=== PATIENT | female | born 1965 | race Caucasian/White ===

== ENCOUNTER → 2016-12-06 | Outpatient (CLI) | payer MEDICAID ==
--- NOTE | 2016-12-06 10:53 | DX ---
Air and Barium Double Contrast Esophagram at 0 927 hours History: K 21.0, esophagitis. Technique: Air and barium double-contrast views of the esophagus obtained in the upright oblique, AP , and lateral projections, as well as the prone oblique projections. Fluoroscopy time: 1.9 minutes. Dose: 82.60 mGy Findings: Esophagus demonstrates normal swallowing function without evidence of strictures, ulceratio ns, obstruction, or hiatal hernia. No fluoroscopic evidence of gastroesophageal reflux. Vallecula and pyriform sinuses appear symmetric. No aspiration. No Zenker's diverticulum Impression: Normal air-contrast esophagram.
== END ==
LOC: FIMAGING 08:59
PROVIDERS: ATTEND Physician Assistant
DX: Z03.89 Encounter for observation for other suspected diseases and conditions ruled out (principal)

== ENCOUNTER → 2016-12-30 | Outpatient (CLI) | payer MEDICAID | LOC: FIMAGING 15:57 | PROVIDERS: ATTEND Physician Assistant | DX: Z12.31 Encounter for screening mammogram for malignant neoplasm of breast (principal) | CPT/HCPCS: G0202 ==

== ENCOUNTER 2017-02-01 21:09 | Emergency (ER) | payer MEDICAID ==
--- NOTE | 2017-02-01 21:39 | CPEKG ---
Heart Rate: 95 RR Interval: 632 P-R Interval: 140 QRSD Interval: 92 QT Interval: 360 QTC Interval: 453 P [place]: 57 QRS [place]: -42 T Wave [place]: 40 EKG Severity - OTHERWISE NORMAL ECG - EKG Impression: SINUS RHYTHM EKG Impression: LEFT AXIS DEVIATION Electronically Signed By: Keenan Weber 02-Feb-2017 03:04:38
[2017-02-01] MEDS ORDERED: LIDOCAINE 2% VISCOUS 15 ML UDCUP PO ONE (21:58)
[2017-02-01] MEDS ORDERED: HYOSCYAMINE SULFATE 0.125 MG TAB PO ONE (21:58)
[2017-02-01] MEDS ORDERED: MAG HYDROX/AL HYDROX/SIMETH 30 ML UDCUP PO ONE (21:58)
--- NOTE | 2017-02-01 22:03 | EDPHY ---
H & P Stated Complaint: abd pain Time Seen by Provider: 02/01/17 21:53 HPI/ROS: Chief complaint: Abdominal pain HPI: 52-year-old female with past medical history of diabetes, GERD and hypertension presenting with 4 hours of epigastric pain. Is described as sharp pain. It is a 10/10. Began 4 hours ago after she ate dinner. She was sitting watching television when it started. It does not radiate. Some nausea no vomiting. No diarrhea. No black bowel movements. Does not feel like any prior symptoms that she has had in the past. No chest pain or shortness of breath. There are no aggravating or alleviating factors. She has not taken any medications for this. ROS: 10 point Review of Systems is negative except as noted in the HPI. Past medical history: Diabetes, GERD, hypertension Medications: Lisinopril, metformin, insulin, NovoLog and Levemir, Reglan, atorvastatin, iron, omeprazole Allergies: Hydromorphone and morphine Social history: She does not smoke, no alcohol no drug use, family history is noncontributory Physical exam: Gen: Awake, Alert, uncomfortable appearing, morbidly obese HEENT: Nose: no rhinorrhea Eyes: PERRLA, EOMI Mouth: Moist mucosa Neck: Supple, no JVD Chest: nontender, lungs clear to auscultation Heart: S1, S2 normal, no murmur Abd: Obese, Soft, epigastric tenderness to palpation reproducing presenting complaint, no right upper quadrant tenderness. No Franz sign. No lower quadrant tenderness, no guarding Back: no CVA tenderness, no midline tenderness Ext: no edema, non-tender Skin: no rash Neuro: CN II-XII intact, Sensation grossly intact, Strength 5/5 in bilateral upper and lower extremities - Personal History Tetanus Vaccine Date: 2009 - Medical/Surgical History Hx Asthma: No Hx Chronic Respiratory Disease: No Hx Diabetes: Yes Hx Cardiac Disease: Yes Hx Renal Disease: No Other PMH: pmh- DM, HTN, sleep apnea (uses CPAP hs)obesity, GERD, iron deficiency anemia, has had pneumonia twice previously. - Social History Smoking Status: Never smoked Constitutional: Initial Vital Signs Temperature (C) 37.1 C 02/01/17 21:12 Heart Rate 99 02/01/17 21:12 Respiratory Rate 22 H 02/01/17 21:12 Blood Pressure 146/86 H 02/01/17 21:12 O2 Sat (%) 94 02/01/17 21:12 O2 (L/minute) 2 Allergies/Adverse Reactions: hydromorphone HCl [From Dilaudid] Allergy (Intermediate, Verified 02/01/17 21:11 ) Other-Enter Comments morphine Allergy (Verified 02/01/17 21:11) Home Medications: Medication Instructions Recorded Lisinopril [Zestril 20 mg (*)] 20 mg PO DAILY 11/23/13 Multivitamins [Multivitamin (*)] 1 each PO DAILY 11/23/13 [place]-3 Fatty Acids [Fish Oil 1000 1,000 mg PO DAILY 12/11/14 mg (*)] Atorvastatin Calcium [Lipitor 10 10 mg PO DAILY 12/12/14 mg (*)] Insulin Detemir [Levemir] 16 unit SQ DAILY #0 09/28/16 Naproxen Sodium [Aleve 220 MG (*)] 220 mg PO DAILY PRN #0 09/28/16 Omeprazole [Prilosec 20 mg] 20 mg PO DAILY #0 09/28/16 Azithromycin [Zithromax] 250 mg PO DAILY #4 tab 10/04/16 Insulin Detemir [Levemir] 28 unit SQ HS 10/04/16 metFORMIN HCL [Glucophage 500 mg 1,000 mg PO BIDMEAL 10/04/16 (*)] Medical Decision Making ED Course/Re-evaluation: 0015 patient is improved after fentanyl and Protonix. She has a mild anemia but this is known as she is on iron for this. Mild leukocytosis but no left shift. Her blood chemistry is normal with the exception of an elevated blood glucose. Liver functions normal troponin is normal. There is no evidence of acute gallbladder disease. There is no evidence of acute coronary syndrome. ECG is normal. Symptoms are consistent with gastritis. Symptoms also consistent with possible peptic ulcer disease. Will discharge with referral for Gastroenterology for upper endoscopy for further evaluation. She will return for worsening. She will continue taking her antacid medications as prescribed. - Data Points Laboratory Results: Laboratory Results 02/01/17 21:25 02/01/17 21:25 02/01/17 02/01/17 02/01/17 21:25 21:25 21:25 WBC RBC Hgb Hct MCV MCH MCHC RDW Plt Count MPV Neut % (Auto) Lymph % (Auto) [place] % (Auto) Eos % (Auto) Baso % (Auto) Nucleat RBC Rel Count Absolute Neuts (auto) Absolute Lymphs (auto) Absolute Monos (auto) Absolute Eos (auto) Absolute Basos (auto) Absolute Nucleated RBC Immature Gran % Immature Gran # Sodium 137 mEq/L mEq/L (134-144) Potassium 4.3 mEq/L mEq/L (3.5-5.2) Chloride 101 mEq/L mEq/L (97-110) Carbon Dioxide 26 mEq/l mEq/l (22-31) Anion Gap 10 mEq/L mEq/L (8-16) BUN 11 mg/dL mg/dL (7-23) Creatinine 0.6 mg/dL mg/dL (0.6-1.0) Estimated GFR > 60 Glucose 262 mg/dL H mg/dL (70-100) Calcium 9.1 mg/dL mg/dL (8.5-10.4) Total Bilirubin 0.5 mg/dL mg/dL (0.1-1.4) Conjugated Bilirubin 0.4 mg/dL mg/dL (0.0-0.5) Unconjugated Bilirubin 0.1 mg/dL mg/dL (0.0-1.1) AST 22 IU/L IU/L (14-46) ALT 35 IU/L IU/L (9-52) Alkaline Phosphatase 113 IU/L IU/L (38-126) Troponin I < 0.012 ng/mL ng/mL (0-0.034) Total Protein 6.8 g/dL g/dL (6.3-8.2) Albumin 4.1 g/dL g/dL (3.5-5.0) Lipase 98.0 IU/L IU/L (23-300) Beta HCG, Qual NEGATIVE 02/01/17 21:25 WBC 11.34 10^3/uL H 10^3/uL (3.80-9.50) RBC 5.13 10^6/uL 10^6/uL (4.18-5.33) Hgb 11.1 g/dL L g/dL (12.6-16.3) Hct 36.1 % L % (38.0-47.0) MCV 70.4 fL L fL (81.5-99.8) MCH 21.6 pg L pg (27.9-34.1) MCHC 30.7 g/dL L g/dL (32.4-36.7) RDW 18.5 % H % (11.5-15.2) Plt Count 450 10^3/uL H 10^3/uL (150-400) MPV 9.1 fL fL (8.7-11.7) Neut % (Auto) 70.3 % % (39.3-74.2) Lymph % (Auto) 18.2 % % (15.0-45.0) [place] % (Auto) 7.0 % % (4.5-13.0) Eos % (Auto) 3.6 % % (0.6-7.6) Baso % (Auto) 0.5 % % (0.3-1.7) Nucleat RBC Rel Count 0.0 % % (0.0-0.2) Absolute Neuts (auto) 7.98 10^3/uL H 10^3/uL (1.70-6.50) Absolute Lymphs (auto) 2.06 10^3/uL 10^3/uL (1.00-3.00) Absolute Monos (auto) 0.79 10^3/uL 10^3/uL (0.30-0.80) Absolute Eos (auto) 0.41 10^3/uL H 10^3/uL (0.03-0.40) Absolute Basos (auto) 0.06 10^3/uL 10^3/uL (0.02-0.10) Absolute Nucleated RBC 0.00 10^3/uL 10^3/uL (0-0.01) Immature Gran % 0.4 % % (0.0-1.1) Immature Gran # 0.04 10^3/uL 10^3/uL (0.00-0.10) Sodium Potassium Chloride Carbon Dioxide Anion Gap BUN Creatinine Estimated GFR Glucose Calcium Total Bilirubin Conjugated Bilirubin Unconjugated Bilirubin AST ALT Alkaline Phosphatase Troponin I Total Protein Albumin Lipase Beta HCG, Qual Medications Given: Discontinued Medications Al Hydroxide/Mg Hydroxide (Maalox Susp) 30 ml PO ONCE ONE Stop: 02/01/17 21:59 Last Admin: 02/01/17 22:15 Dose: 30 ml Fentanyl (Sublimaze) 50 mcg IVP EDNOW ONE Stop: 02/01/17 22:47 Last Admin: 02/01/17 22:47 Dose: 50 mcg Hyoscyamine Sulfate (Levsin, Hyomax-Sl) 0.25 mg PO ONCE ONE Stop: 02/01/17 21:59 Last Admin: 02/01/17 22:14 Dose: 0.25 mg Pantoprazole Sodium 40 mg/ (Sodium Chloride) 100 mls @ 200 mls/hr IV EDNOW ONE Stop: 02/01/17 23:45 Last Admin: 02/01/17 23:33 Dose: 100 mls Lidocaine (Lidocaine 2% Viscous) 15 ml PO ONCE ONE Stop: 02/01/17 21:59 Last Admin: 02/01/17 22:15 Dose: 15 ml Departure - Departure Disposition: Home, Routine, Self-Care Clinical Impression: Gastritis Condition: Good Instructions: Diet for Stomach Ulcers and Gastritis (ED), Gastritis (ED) Additional Instructions: Continue taking your reflux medications. Follow up with primary care doctor in 2-3 days for re-evaluation. I have given a referral to Gastroenterology for and endoscopy to evaluate for possible ulcer. Return emergency depart for increasing pain, nausea, vomiting, dark black stools , or any other concerns. Referrals: Racheal Melendrez [Primary Care Provider] - As per Instructions Print Language: Slovak
[2017-02-01 22:13] LABS: % IMMATURE GRANULYOCYTES 0.4 % (0.0-1.1); ABSOLUTE IMMATURE GRANULOCYTES 0.04 10^3/uL (0.00-0.10); ADD DIFF? NO; ADD MORPH? NO; ADD SCAN? NO; ATYPICAL LYMPHOCYTE FLAG 0 (0-99); FRAGMENT RBC FLAG 20 (0-99); HEMATOCRIT 36.1 % (38.0-47.0); HEMOGLOBIN 11.1 g/dL (12.6-16.3); LEFT SHIFT FLG 0 (0-99); LIPEMIA HEMOLYSIS FLAG 80 (0-99); MEAN CELL HEMOGLOBIN 21.6 pg (27.9-34.1); MEAN CELL HEMOGLOBIN CONCENTR. 30.7 g/dL (32.4-36.7); MEAN CELL VOLUME 70.4 fL (81.5-99.8); MEAN PLATELET VOLUME 9.1 fL (8.7-11.7); PLATELET CLUMPS FLAG 0 (0-99); PLATELET COUNT 450 10^3/uL (150-400); RED BLOOD CELL COUNT 5.13 10^6/uL (4.18-5.33); RED CELL DISTRIBUTION WIDTH 18.5 % (11.5-15.2)
[2017-02-01 22:21] LABS: ALANINE AMINOTRANSFERASE 35 IU/L (9-52); ALBUMIN 4.1 g/dL (3.5-5.0); ALKALINE PHOSPHATASE 113 IU/L (38-126); ANION GAP 10 mEq/L (8-16); ASPARTATE AMINOTRANSFERASE 22 IU/L (14-46); BILIRUBIN,TOTAL 0.5 mg/dL (0.1-1.4); BILIRUBIN-CONJUGATED 0.4 mg/dL (0.0-0.5); BILIRUBIN-UNCONJUGATED 0.1 mg/dL (0.0-1.1); CALCIUM 9.1 mg/dL (8.5-10.4); CARBON DIOXIDE 26 mEq/l (22-31); CHLORIDE 101 mEq/L (97-110); CREATININE 0.6 mg/dL (0.6-1.0); GLOMERULAR FILTRATION RATE > 60; GLUCOSE 262 mg/dL (70-100); POTASSIUM 4.3 mEq/L (3.5-5.2); SODIUM 137 mEq/L (134-144); TOTAL PROTEIN 6.8 g/dL (6.3-8.2)
[2017-02-01] MEDS ORDERED: fentaNYL 100 MCG/2 ML INJ ONE (22:41)
[2017-02-01] MEDS ORDERED: fentaNYL 100 MCG/2 ML INJ IVP ONE (22:46)
[2017-02-01] MEDS ORDERED: PANTOPRAZOLE SODIUM 40 MG in NS 100 ML IV ONE (23:16)
[2017-02-02 00:42] VITALS: BP 134/78; PULSE 87; RESP 16; TEMP 98.2; O2SAT 91
== END 2017-02-02 00:40 | disposition home or self-care (01) ==
DX: K29.70 Gastritis, unspecified, without bleeding (principal); E11.9 Type 2 diabetes mellitus without complications; I10 Essential (primary) hypertension; Z79.4 Long term (current) use of insulin; Z79.84 Long term (current) use of oral hypoglycemic drugs
CPT/HCPCS: 96374; J3010

== ENCOUNTER → 2017-02-16 | Outpatient (CLI) | payer MEDICAID | LOC: FCPNEURO 23:30 | PROVIDERS: ATTEND Psychiatry & Neurology Sleep Medicine | DX: G47.33 Obstructive sleep apnea (adult) (pediatric) (principal) ==

== ENCOUNTER 2017-04-20 09:05 | Day surgery (SDC) | payer MEDICAID ==
[2017-04-20] MEDS ORDERED: PROPOFOL/EMULSION 500 MG/50 ML BOTTLE IV ONE (11:13)
[2017-04-20] MEDS ORDERED: fentaNYL 100 MCG/2 ML INJ ONE (11:16)
--- NOTE | 2017-04-20 12:45 | GPN ---
[f rep st] PROCEDURE NOTE DATE OF PROCEDURE: 04/20/2017 PROCEDURE: Esophagogastroduodenoscopy and colonoscopy. INDICATION: A 52-year-old female with iron deficiency anemia, positive FOBT x3, and periumbilical a bdominal pain. CONSENT: Informed consent was obtained from the patient after a thorough explanation of risks, bene fits, and alternatives to the procedure. All questions were answered. COMPLICATIONS: None. MEDICATIONS GIVEN: Propofol per Anesthesia. SEDATION: Propofol per Anesthesia. ESTIMATED BLOOD LOSS: None. DESCRIPTION OF PROCEDURE: After the patient was adequately sedated, the forward-viewing endoscope w as advanced through the mouth as far as the second portion of the duodenum under direct vision. The scope was slowly withdrawn with findings as below. Following completion of the upper endoscopy, th e patient was turned, and the scope was changed out for a colonoscope. With the patient still sedat ed, the colonoscope was carefully advanced through the anal canal and as far as the cecum and termin al ileum without difficulty. The scope was then slowly withdrawn, and views were obtained. Retrofl exion was performed in the ascending colon and in the rectum. Quality of the preparation was good. The patient's toleration of the procedure was good. FINDINGS: 1. Esophagus: Normal. 2. Stomach: Moderate gastritis with erythema, but no discrete ulcers or bleeding. Biopsies were o btained from the antrum and body to assess for H pylori or other findings. 3. Duodenum: The duodenal bulb and second portion of the duodenum were normal. Biopsies x4 in the second portion of the duodenum and x2 in the duodenal bulb were obtained to assess for celiac disea se as a cause of iron deficiency anemia. 4. Terminal ileum: The terminal ileum was normal. Approximately 10 cm were examined. 5. Colon: A 3 mm polyp was removed by cold snare from the hepatic flexure, retrieved, and placed i n a jar for histologic examination. A 2 mm polyp was removed from the transverse colon with cold bi opsy forceps and placed in the same jar for histologic examination. A 1 mm polyp was removed from t he distal sigmoid colon without difficulty with cold biopsy forceps, and placed in a separate jar fo r histologic examination. Large internal hemorrhoids were seen. No other lesions or explanations f or iron deficiency anemia were seen on the colonoscopy. IMPRESSION: No obvious source of iron deficiency anemia was seen on this exam, pending biopsies for celiac disease. RECOMMENDATIONS: 1. If biopsies do not show celiac disease, then a capsule endoscopy will be performed. 2. If the patient has significant amounts of hematochezia, then I will consider banding of her inte rnal hemorrhoids. 3. If all 3 polyps are adenomas, then repeat colonoscopy will be recommend in 3 years. If 1 or 2 p olyps are adenomas, then repeat colonoscopy will be recommended in 5 years. If no polyps or adenoma s, then repeat colonoscopy for average risk screening will be recommended in 10 years. We will plac e the patient in recall as above, as appropriate. /[id number]/MODL
== END 2017-04-20 13:35 | disposition home or self-care (01) ==
LOC: FSGY 09:05
PROVIDERS: ATTEND Internal Medicine
PROC: 0DBN8ZX Excision of Sigmoid Colon, Via Natural or Artificial Opening Endoscopic, Diagnostic (ICD-10-PCS; principal; 2017-04-20 11:00)
PROC: 0DB68ZX Excision of Stomach, Via Natural or Artificial Opening Endoscopic, Diagnostic (ICD-10-PCS; principal; 2017-04-20 11:00)
PROC: 0DBK8ZX Excision of Ascending Colon, Via Natural or Artificial Opening Endoscopic, Diagnostic (ICD-10-PCS; principal; 2017-04-20 11:00)
PROC: 0DB98ZX Excision of Duodenum, Via Natural or Artificial Opening Endoscopic, Diagnostic (ICD-10-PCS; principal; 2017-04-20 11:00)
PROC: 0DBL8ZX Excision of Transverse Colon, Via Natural or Artificial Opening Endoscopic, Diagnostic (ICD-10-PCS; principal; 2017-04-20 11:00)
DX: R10.33 Periumbilical pain (principal); D50.9 Iron deficiency anemia, unspecified; R19.5 Other fecal abnormalities; E11.9 Type 2 diabetes mellitus without complications; G47.33 Obstructive sleep apnea (adult) (pediatric); K64.8 Other hemorrhoids
CPT/HCPCS: J2704; J3010

== ENCOUNTER 2018-01-07 21:20 | Emergency (ER) | payer MEDICAID ==
[2018-01-07 21:34] VITALS: TEMP 98.1
[2018-01-07 21:43] LABS: PLATELET COUNT 370 10^3/uL (150-400)
--- NOTE | 2018-01-07 21:43 | CPEKG ---
Heart Rate: 82 RR Interval: 732 P-R Interval: 144 QRSD Interval: 102 QT Interval: 392 QTC Interval: 458 P [place]: 47 QRS [place]: -47 T Wave [place]: 30 EKG Severity - ABNORMAL ECG - EKG Impression: SINUS RHYTHM EKG Impression: LEFT ANTERIOR FASCICULAR BLOCK Electronically Signed By: Dejan Rodrigez 07-Jan-2018 22:26:01
[2018-01-07] MEDS ORDERED: DEXAMETHASONE 10 MG/ML VIAL IVP ONE (22:21)
[2018-01-07] MEDS ORDERED: NS 1,000 ML IV ONE (22:21)
[2018-01-07] MEDS ORDERED: METOCLOPRAMIDE 10 MG/2 ML VIAL IVP ONE (22:21)
[2018-01-07] MEDS ORDERED: KETOROLAC 30 MG/1 ML SDV IVP ONE (22:21)
--- NOTE | 2018-01-07 22:26 | EDPHY ---
H & P Stated Complaint: Diffuse headache Time Seen by Provider: 01/07/18 22:15 HPI/ROS: CHIEF COMPLAINT: Headache HISTORY OF PRESENT ILLNESS: Patient is a 52-year-old female with a history of diabetes and obesity who comes to the emergency department via EMS complaining of a diffuse headache. She states that it is primarily in the top of her head and that it began abruptly about 2 hr ago. She states that when it 1st began she could feel tenderness to her scalp. She also developed mild hyperventilation and chest heaviness which she states is characteristic of her anxiety attacks. She is not concerned about this and does not think it is a cardiac issue. It is now resolved. She has not had any vision or hearing changes. No focal weakness or deficits. This headache is the worst of her life. REVIEW OF SYSTEMS: Constitutional: denies: chills, fever, recent illness, recent injury EENTM: denies: blurred vision, double vision, nose congestion Respiratory: denies: cough, shortness of breath Cardiac: denies: chest pain, irregular heart rate, lightheadedness, palpitations Gastrointestinal/Abdominal: denies: abdominal pain, diarrhea, nausea, vomiting, blood streaked stools Genitourinary: denies: dysuria, frequency, hematuria, pain Musculoskeletal: denies: joint pain, muscle pain Skin: denies: lesions, rash, jaundice, bruising Neurological: denies: headache, numbness, paresthesia, tingling, dizziness, weakness Hematologic/Lymphatic: denies: blood clots, easy bleeding, easy bruising Immunologic/allergic: denies: HIV/AIDS, transplant EXAM: GENERAL: Well-appearing, obese and in no acute distress. HEAD: Atraumatic, normocephalic. EYES: Pupils equal round and reactive to light, extraocular movements intact, sclera anicteric, conjunctiva are normal. ENT: TMs normal, nares patent, oropharynx clear without exudates. Moist mucous membranes. NECK: Normal range of motion, supple without lymphadenopathy or JVD. LUNGS: Breath sounds clear to auscultation bilaterally and equal. No wheezes rales or rhonchi. HEART: Regular rate and rhythm without murmurs, rubs or gallops. ABDOMEN: Soft, nontender, normoactive bowel sounds. No guarding, no rebound. No masses appreciated. BACK: No CVA tenderness, no spinal tenderness, step-offs or deformities EXTREMITIES: Normal range of motion, no pitting or edema. No clubbing or cyanosis. NEUROLOGICAL: Cranial nerves II through XII grossly intact. Normal speech, normal gait. 5/5 strength, normal movement in all extremities, normal sensation PSYCH: Normal mood, normal affect. SKIN: Warm, dry, normal turgor, no visible rashes or lesions. Source: Patient Exam Limitations: No limitations - Personal History LMP (Females 10-55): Unknown Tetanus Vaccine Date: 2009 - Medical/Surgical History Hx Asthma: No Hx Chronic Respiratory Disease: No Hx Diabetes: Yes Hx Cardiac Disease: Yes Hx Renal Disease: No Other PMH: pmh- DM, HTN, sleep apnea (uses CPAP hs)obesity, GERD, iron deficiency anemia,. - Family History Significant Family History: No pertinent family hx - Social History Smoking Status: Never smoked Alcohol Use: Sober Drug Use: None Constitutional: Initial Vital Signs Temperature (C) 36.7 C 01/07/18 21:20 Heart Rate 96 01/07/18 21:20 Respiratory Rate 22 H 01/07/18 21:20 Blood Pressure 137/76 H 01/07/18 21:20 O2 Sat (%) 95 01/07/18 21:20 O2 Delivery Mode Room Air Allergies/Adverse Reactions: morphine Allergy (Verified 01/07/18 21:30) Other-Enter Comments Home Medications: Medication Instructions Recorded Lisinopril [Zestril 20 mg (*)] 20 mg PO DAILY 11/23/13 Atorvastatin Calcium [Lipitor 10 10 mg PO DAILY 12/12/14 mg (*)] metFORMIN HCL [Glucophage 500 mg 1,000 mg PO BIDMEAL 10/04/16 (*)] [place] 01/07/18 Humulin R U-500 01/07/18 Medical Decision Making - Diagnostics EKG Interpretation: An EKG obtained and was read and documented in trace view. Please see trace view for full reading and report. Sinus rhythm, left anterior fascicular block , unchanged from previous Imaging Results: Imaging Impressions Head CT 01/07/18 22:21 Impression: No acute intracranial findings. Findings discussed with FRANK STEELE 01/07/2018 at 23:34. Head CTA 01/07/18 22:26 Impression: No acute findings. Findings discussed with FRANK STEELE 01/07/2018 at 23:34. Imaging: Discussed imaging studies w/ masking machine feeder Radiologist ED Course/Re-evaluation: 11:30 p.m. the patient is feeling much better. Her headache is gone. We discussed the CT and CT angio results. She is reassured. I did offer LP although I think it is utility is somewhat limited considering the other negative studies. The patient declines. She is eager to go home. We discussed follow-up and indications for returning. Differential Diagnosis: Partial list of the Differential diagnosis considered include but were not limited to; headache, migraine and although unlikely based on the history and physical exam, I also considered subarachnoid, aneurysm, tumor, infection. I discussed these differential diagnoses and the plan with the patient as well as the usual and expected course. The patient understands that the diagnosis is provisional and that in medicine we are not always correct and that further workup is often warranted. Usual and customary warnings were given. All of the patient's questions were answered. The patient was instructed to return to the emergency department should the symptoms at all worsen or return, otherwise to followup with the physician as we discussed. - Data Points Laboratory Results: Laboratory Results 01/07/18 21:22 01/07/18 21:22 01/07/18 01/07/18 21:22 21:22 WBC 10.10 10^3/uL H 10^3/uL (3.80-9.50) RBC 5.17 10^6/uL 10^6/uL (4.18-5.33) Hgb 14.3 g/dL g/dL (12.6-16.3) Hct 43.7 % % (38.0-47.0) MCV 84.5 fL fL (81.5-99.8) MCH 27.7 pg L pg (27.9-34.1) MCHC 32.7 g/dL g/dL (32.4-36.7) RDW 13.6 % % (11.5-15.2) Plt Count 370 10^3/uL 10^3/uL (150-400) MPV 9.1 fL fL (8.7-11.7) Neut % (Auto) 60.4 % % (39.3-74.2) Lymph % (Auto) 26.8 % % (15.0-45.0) [place] % (Auto) 7.2 % % (4.5-13.0) Eos % (Auto) 4.8 % % (0.6-7.6) Baso % (Auto) 0.6 % % (0.3-1.7) Nucleat RBC Rel Count 0.0 % % (0.0-0.2) Absolute Neuts (auto) 6.10 10^3/uL 10^3/uL (1.70-6.50) Absolute Lymphs (auto) 2.71 10^3/uL 10^3/uL (1.00-3.00) Absolute Monos (auto) 0.73 10^3/uL 10^3/uL (0.30-0.80) Absolute Eos (auto) 0.48 10^3/uL H 10^3/uL (0.03-0.40) Absolute Basos (auto) 0.06 10^3/uL 10^3/uL (0.02-0.10) Absolute Nucleated RBC 0.00 10^3/uL 10^3/uL (0-0.01) Immature Gran % 0.2 % % (0.0-1.1) Immature Gran # 0.02 10^3/uL 10^3/uL (0.00-0.10) Sodium 145 mEq/L mEq/L (135-145) Potassium 4.4 mEq/L mEq/L (3.5-5.2) Chloride 101 mEq/L mEq/L (97-110) Carbon Dioxide 28 mEq/l mEq/l (22-31) Anion Gap 16 mEq/L mEq/L (8-16) BUN 12 mg/dL mg/dL (7-23) Creatinine 0.7 mg/dL mg/dL (0.6-1.0) Estimated GFR > 60 Glucose 161 mg/dL H mg/dL (70-100) Calcium 9.9 mg/dL mg/dL (8.5-10.4) Troponin I < 0.012 ng/mL ng/mL (0.000-0.034) Medications Given: Discontinued Medications Dexamethasone (Decadron Injection) 10 mg IVP EDNOW ONE Stop: 01/07/18 22:22 Last Admin: 01/07/18 22:26 Dose: 10 mg Sodium Chloride (Ns) 1,000 mls @ 0 mls/hr IV ONCE ONE; Wide Open PRN Reason: Protocol Stop: 01/07/18 22:22 Last Admin: 01/07/18 22:27 Dose: 1,000 mls Ketorolac Tromethamine (Toradol) 30 mg IVP EDNOW ONE Stop: 01/07/18 22:22 Last Admin: 01/07/18 22:26 Dose: 30 mg Metoclopramide HCl (Reglan Injection) 10 mg IVP EDNOW ONE Stop: 01/07/18 22:22 Last Admin: 01/07/18 22:27 Dose: 10 mg Departure - Departure Disposition: Home, Routine, Self-Care Clinical Impression: Headache Qualifiers: Headache type: unspecified Headache chronicity pattern: acute headache Intractability: not intractable Qualified Code(s): R51 - Headache Condition: Good Instructions: Acute Headache (ED) Referrals: NONE *PRIMARY CARE P,. [Primary Care Provider] - As per Instructions Racheal Melendrez [Non Staff and Non MD] - As per Instructions
[2018-01-07] MEDS ORDERED: IOPAMIDOL (ISOVUE 370) 100 ML BTL IV ONE (22:55)
[2018-01-07 23:51] VITALS: BP 133/78; PULSE 83; RESP 16; O2SAT 93
== END 2018-01-07 23:51 | disposition home or self-care (01) ==
LOC: EDUNIT#
DX: R51 Headache (principal); I10 Essential (primary) hypertension; E11.9 Type 2 diabetes mellitus without complications; E86.9 Volume depletion, unspecified; Z79.4 Long term (current) use of insulin; Z79.84 Long term (current) use of oral hypoglycemic drugs
CPT/HCPCS: 96374; J1100; J1885; J2765; Q9967